=== PATIENT | female | born 1990 | race Caucasian/White ===

== ENCOUNTER 2019-12-18 14:26 | Emergency (ER) | payer OTHER, SELFPAY ==
[2019-12-18 14:32] VITALS: BP 120/81; PULSE 92; RESP 20; TEMP 37.3; O2SAT 97
--- NOTE | 2019-12-18 15:05 | ED.WOUNDLAC ---
HPI - Wound/Laceration General Chief Complaint: Wound/Laceration Stated Complaint: right hand pinky injury Time Seen by Provider: 12/18/19 15:05 Source: patient and RN notes reviewed Mode of arrival: ambulatory Limitations: no limitations History of Present Illness HPI narrative: 29 [facility] complaints of laceration to the anterior mid 5th finger which occurred about 1 hour ago which occurred from a mirror. Patient has flap type of laceration with bleeding noted, has full mobility of her 5th right finger, denies any tingling or numbness to her finger, nail bed has brisk capillary refill, strong right radial pulse. Patient states that her Tetanus is up to date. She is presently on Amoxicillin for a sore throat from her PCP. Onset (ago): hour(s) (1) Location: other (finger right 5th finger) Place: home Patient tetanus UTD: Yes Context: accidental Associated symptoms: none Treatments prior to arrival: bandage Related Data Home Medications Medication Instructions Recorded Confirmed amoxicillin 875 mg PO Q12H 12/18/19 12/18/19 Allergies Allergy/AdvReac Type Severity Reaction Status Date / Time No Known Allergies Allergy Verified 12/18/19 14:35 Review of Systems Review of Systems: Narrative: CONSTITUTIONAL: Denies fever, chills, or sweats. EYES: Denies visual changes, redness, or discharge. ENT: Denies rhinorrhea, congestion, sore throat, or otalgia. CARDIOVASCULAR: Denies chest pain, palpitations, or edema. RESPIRATORY: Denies cough or dyspnea. GASTROINTESTINAL: Denies abdominal pain, nausea, vomiting, or diarrhea. GENITOURINARY: Denies dysuria or hematuria. SKIN: Denies rash or itching.laceeration to her 5th right finger MUSCULOSKELETAL: Denies back pain, joint pain, or myalgia. NEUROLOGIC: Denies headache, numbness, or weakness. PSYCHIATRIC: Denies anxiety or depression. All systems reviewed & are unremarkable except as noted in HPI and below PMFSH Past Medical History Medical History Kidney stones Ureteropelvic junction (UPJ) obstruction Reconstruction 2000 Surgical History Surgical History History of cone biopsy of cervix 2017 Family History Family History Grandparent Family history of malignant neoplasm Diabetes mellitus Father Family history of kidney stones Social History Social History (Updated 12/20/19 @ 10:56 by Caridad Restrepo NP) Smoking status: Never smoker Alcohol intake: current Living arrangements: with family Gender identity (if verbalized by the patient): Female Comments At time of signature, agree with nursing past medical, surgical, social history. There is no relevant family history pertinent to the presenting complaint Exam Narrative: Exam Narrative: GENERAL: Well-appearing, well-nourished, and in no acute distress. HEAD: Normocephalic, atraumatic. EYES: PERRLA and EOMI. ENT: Nares clear, no rhinorrhea or epistaxis. Mucous membranes moist.TM's normal with good light reflex, throat pink with no lesions or exudates, mild tonsil enlargement. NECK: Supple.no lymphadenopathy CHEST: Clear to auscultation. No respiratory distress. HEART: Regular rate and rhythm. No murmur heard. Normal peripheral pulses. ABDOMEN: Soft, nontender, nondistended, normal active bowel sounds. EXTREMITIES: Normal range of motion. No edema. SKIN: Warm, dry, no rash.1cm flap type of laceration to mid anterior right 5th finger, full mobility of her right 5th finger, denies any tingling or numbness to her finger, brisk capillary refill to 5th right nail bed, strong right radial pulse. NEURO: No focal deficits. Alert and oriented x3. Course Vital Signs Vital signs: Vital Signs Temperature 37.3 C 12/18/19 14:32 Pulse Rate 92 12/18/19 14:32 Respiratory Rate 20 12/18/19 14:32 Blood Pressur
== END 2019-12-18 16:02 | disposition home or self-care (01) ==
PROVIDERS: Emergency Provider Registered Nurse; PCP Nurse Practitioner Adult Health
DX: S61.216A Laceration without foreign body of right little finger without damage to nail, initial encounter (principal); W25.XXXA Contact with sharp glass, initial encounter; Y93.9 Activity, unspecified
CPT/HCPCS: 12001; 99212; G0463

== ENCOUNTER → 2021-10-25 15:33 | Outpatient (CLI) | payer OTHER, SELFPAY ==
--- NOTE | ~2021-10-25 | XR_ITS ---
XR abdomen/kub 1V 10/25/2021 15:51 Indication: Renal stones Procedure: KUB Comparison: 07/19/2015 Findings: There are right renal stones. Nonobstructive bowel gas pattern. There are pelvic phlebolith s. There is dextroscoliosis of the lumbar spine. No acute osseous abnormality. Impression: 1: Right nephrolithiasis. Reviewed, dictated and finalized at location A. STRIPPER FINAL Impression: 1: Right nephrolithiasis.
== END ==
PROVIDERS: PCP Nurse Practitioner Adult Health; Visit Provider Urology
DX: N20.0 Calculus of kidney (principal)
CPT/HCPCS: 74018

== ENCOUNTER 2022-08-12 09:20 | Emergency (ER) | payer OTHER, SELFPAY ==
[2022-08-12 09:28] VITALS: BP 126/84; PULSE 97; RESP 16; TEMP 36.5; O2SAT 99
--- NOTE | 2022-08-12 10:54 | ED.URI ---
HPI - URI/Sore Throat General Chief Complaint: Upper Respiratory Infection Stated Complaint: Sore Throat/Congestion Time Seen by Provider: 08/12/22 10:55 Source: patient and RN notes reviewed Mode of arrival: ambulatory Limitations: no limitations History of Present Illness HPI Narrative: 32 y/o female presented for c/o sore throat, sinus pressure/congestion, cough, onset last night. Patient is 14 weeks . She has not taken anything for symptoms. She denies shortness of breath, wheezing, fevers or chills. She endorses vomiting related to . MD elicited complaint: cough Related Data Allergies Allergy/AdvReac Type Severity Reaction Status Date / Time No Known Allergies Allergy Verified 12/18/19 14:35 Review of Systems Review of Systems: ROS per HPI [facility] Past Medical History Medical History (Updated 08/12/22 @ 11:30 by Madeline Koenig APRN) Kidney stones Ureteropelvic junction (UPJ) obstruction Reconstruction 2000 Surgical History Surgical History History of cone biopsy of cervix 2017 Family History Family History Grandparent Family history of malignant neoplasm Diabetes mellitus Father Family history of kidney stones Social History Social History Smoking status: Never smoker Alcohol intake: current Gender identity (if verbalized by the patient): Female Exam Narrative: GENERAL: Ill-appearing, nontoxic EYES: PERRLA, conjunctivae clear ENT: Mucous membranes moist. TM pearly damon with dull light reflex bilaterally; no tragal tenderness. Oropharynx erythematous without tonsillar swelling,lesions or exudate, no drooling, no hoarseness, no trismus, uvula midline. No tripod positioning, muffled voice, soft palate or pharyngeal wall bulging NECK: Supple. No lymphadenopathy CHEST: Clear to auscultation, breath sounds equal. HEART: Regular rate and rhythm. No murmur heard. SKIN: Warm, dry, no rash. NEURO: Alert and oriented x3. PSYCH: Normal mood and affect Course Course Emergency Course: Patient is aware of diagnosis, understands and agrees to treatment plan. Anticipatory guidance given. Patient agrees to follow-up as directed and is aware of reasons to seek care at the emergency department. Portions of this record may have been created with voice recognition software Level of Care: Express Care Visit Vital Signs Vital signs: Vital Signs Temperature 97.7 F 08/12/22 09:28 Pulse Rate 97 08/12/22 09:28 Respiratory Rate 16 08/12/22 09:28 Blood Pressure 126/84 08/12/22 09:28 Pulse Oximetry 99 08/12/22 09:28 Oxygen Delivery Room Air 08/12/22 09:28 Temperature 97.7 F 08/12/22 09:28 Pulse Rate 97 08/12/22 09:28 Respiratory Rate 16 08/12/22 09:28 Blood Pressure 126/84 08/12/22 09:28 Pulse Oximetry 99 08/12/22 09:28 Oxygen Delivery Room Air 08/12/22 09:28 reviewed MDM - URI/Sore Throat MDM Narrative Medical decision making narrative: COVID and flu negative. Results reviewed with patient. Advised supportive measures and signs/symptoms to go to the ER. Pt is appropriate for outpt treatment and f/u. Differential Diagnosis Differential diagnosis: Likely upper respiratory infection, sinusitis and viral infection Lab Data Labs: Influenza A Screen Negative Reference Range: Negative Influenza B Screen Negative Reference Range: Negative Discharge Plan Discharge Clinical Impression: Upper respiratory infection Patient Disposition: Home, Self-Care Condition: Stable Instructions: Upper Respiratory Infection (ED) Additional Instructions: COVID And flu negative. Tylenol every 8 hours as needed for pain Rest, pus
== END 2022-08-12 11:35 | disposition home or self-care (01) ==
PROVIDERS: Emergency Provider Nurse Practitioner Family
DX: O99.512 Diseases of the respiratory system complicating pregnancy, second trimester (principal); Z3A.14 14 weeks gestation of pregnancy; J06.9 Acute upper respiratory infection, unspecified; Z20.822 Contact with and (suspected) exposure to COVID-19
CPT/HCPCS: 87426; 87804; 99213; C9803; G0463

== ENCOUNTER 2022-10-24 14:21 | Outpatient (CLI) | payer OTHER, SELFPAY ==
[2022-10-24] VITALS (8 sets, daily range): BP systolic 120–130; BP diastolic 77–89; PULSE 79–99; TEMP 36.9
--- NOTE | 2022-10-24 15:55 | PC.NURSE ---
Dr. Koch returned page and informed of pt's arrival with c/o small leakage of fluid on and off for the last week. ROM plus was negative. FHT's 145 with 10 beat accels- appropriate for 25 wks gestation. Discussed pt's BP's here today. Pt denies headaches, but does have some spots in vision at time. No epigastric pain. No edema. Unable to illicit DTR's. OK to discharge to home.
== END 2022-10-24 16:08 | disposition home or self-care (01) ==
LOC: ANHOBOP 14:27 → ANHOBPP 14:29
PROVIDERS: Visit Provider Obstetrics & Gynecology
DX: O42.90 Premature rupture of membranes, unspecified as to length of time between rupture and onset of labor, unspecified weeks of gestation (principal); Z3A.00 Weeks of gestation of pregnancy not specified
CPT/HCPCS: 59025; 84112; 99199

== ENCOUNTER 2022-12-21 07:01 | Outpatient (CLI) | payer OTHER, SELFPAY ==
--- NOTE | 2022-12-21 07:15 | PC.NURSE ---
Pt arrived here via personal car. States she was triaged by the [facility] and they told her to come to [place]. Her BP was elevated at that hospital 150s/120s. She went to the ED for chest tightness and dizzy spells. Her Mother is a nurse and stated she had an irregular HR. Upon admission this RN also auscultated an irregular HR. Pt states she has had elevated blood pressure with her visits since September but they were better once they started doing them at the end of her visit vs. right when she got there. She states she has been checking them at home and they have been normal. Pt states she had a colposcopy back in 2018 and her heart stopped after being given lidocaine with epinephrine in it. She is also having contractions that she describes as period cramps.
[2022-12-21 07:26] VITALS: BP 138/109; PULSE 179
[2022-12-21 07:30] VITALS: BP 145/131; PULSE 170
[2022-12-21 07:31] VITALS: PULSE 151; O2SAT 98
[2022-12-21 07:36] VITALS: PULSE 82; O2SAT 100
[2022-12-21 07:41] VITALS: PULSE 45; O2SAT 87
[2022-12-21 07:43] VITALS: PULSE 25; O2SAT 91
--- NOTE | 2022-12-21 07:45 | PC.NURSE ---
Reported to ED charge nurse Rohini holley's complaints. SVE has been performed here and Dr. Noe Rosales would like her evaluated for her cardiac issues prior to giving medications for contractions since her cervix is closed.
[2022-12-21 08:32] LABS: Fetal Fibronectin Negative
[2022-12-21 23:05] LABS: Uric Acid 4.1 mg/dL (2.5-7.5)
[2022-12-21 23:13] LABS: Creatinine Urine 68.1 mg/dL; Total Protein Urine Random 17 mg/dL; Ur Ttl Prot Creatinine Ratio 0.25 mg/mg (0-0.20)
== END 2022-12-21 07:50 | disposition other institution (70) ==
LOC: ANHOBOP 07:05 → ANHOBPP 07:05
PROVIDERS: Obstetrics & Gynecology; Visit Provider Obstetrics & Gynecology
DX: O13.9 Gestational [pregnancy-induced] hypertension without significant proteinuria, unspecified trimester (principal); Z3A.00 Weeks of gestation of pregnancy not specified
CPT/HCPCS: 36415; 59025; 82570; 82731; 84156; 84550; 99199

== ENCOUNTER 2022-12-21 07:51 | Emergency (ER) | payer OTHER, SELFPAY ==
[2022-12-21] VITALS (12 sets, daily range): BP systolic 102–146; BP diastolic 67–130; PULSE 110–175; RESP 15–21; TEMP 36.4; O2SAT 97–100
--- NOTE | ~2022-12-21 | CT_ITS ---
EXAMINATION: CTA chest PE protocol DATE: 12/21/2022 11:48 INDICATION: Shortness of breath TECHNIQUE: Computed tomography angiography (CTA) of the chest was performed with 100 mL Omnipaque-350 intravenous contrast timed to evaluate the pulmonary arteries. Coronal maximum intensity projection 3D-reconstructions were created by the technologist. The dose-length product (DLP) was 398.66 mGy-cm. Automated exposure control and iterative reconstruction technique were employed. COMPARISON: None. FINDINGS: The pulmonary arteries are well-opacified. No pulmonary embolism is identified. No patholog ically enlarged thoracic lymph nodes are identified. The heart size is normal. There is mild dependen t atelectasis. The lungs are free of focal airspace opacities. No pleural effusion or pneumothorax. T here is a small sliding hiatal hernia. There is hydronephrosis of the partially imaged right kidney. There are multiple stones of the right kidney which measure up to 9 mm. IMPRESSION: 1. No pulmonary embolism or acute cardiopulmonary abnormality. 2. Hydronephrosis and nephrolithiasis of the partially imaged right kidney. Reviewed, dictated and finalized at location A.
--- NOTE | ~2022-12-21 | XR_ITS ---
EXAMINATION: XR chest 1V INDICATION: Shortness of breath TECHNIQUE: PA view of the chest is obtained. COMPARISON: 02/24/2018 FINDINGS: The lungs are free of acute opacities. No pleural effusion or pneumothorax. The cardiomedia stinal silhouette is normal. The visualized bones and soft tissues are unremarkable. IMPRESSION: 1. No acute cardiopulmonary abnormality. Reviewed, dictated and finalized at location A.
--- NOTE | 2022-12-21 08:06 | ECG_ITS ---
Measurements Intervals [place] Rate: 113 P: MT: 0 QRS: 22 QRSD: 80 T: 13 QT: 289 QTc: 397 Interpretive Statements ATRIAL FIBRILLATION WITH RAPID VENTRICULAR RESPONSE ABNORMAL RHYTHM ECG NO PREVIOUS ECG AVAILABLE FOR COMPARISON Electronically Signed On 12-21-2022 19:16:41 CDT by Mary Grace Hall M.D.
[2022-12-21 08:35] LABS: Basophils Percent Auto 0.2 % (0.2-1.2); Eosinophils Percent Auto 0.3 % (0-4.4); Hematocrit 35.2 % (37.0-47.0); Hemoglobin 12.2 g/dL (12.0-15.0); Immature Granulocyte Absolute 0.04 K/mm3 (0.00-0.031); Immature Granulocyte Percent A 0.4 % (0-0.5); Lymphocytes Absolute Auto 1.57 K/mm3 (0.9-3.2); Lymphocytes Percent Auto 15.8 % (18.3-44.2); Mean Corpuscular HGB Conc 34.7 g/dl (32-36); Mean Corpuscular Hemoglobin 33.2 pg (26-34); Mean Corpuscular Volume 95.7 fl (80-100); Mean Platelet Volume 10.9 fl (7.4-10.4); Monocytes Absolute Auto 0.6 K/mm3 (0.1-0.6); Monocytes Percent Auto 5.5 % (2.6-8.5); Neutrophils Absolute Auto 7.7 K/mm3 (1.3-6.7); Neutrophils Percent Auto 77.8 % (45.5-73.1); Platelet Count Result 180 k/mm3 (150-375); Red Blood Count 3.68 M/mm3 (4.2-5.4); Red Cell Distribution Width 13.2 % (11.5-14.5); White Blood Count 9.9 K/mm3 (4.5-10.0)
[2022-12-21 08:41] LABS: Appearance Urine Clear (Clear); Bacteria Urine None Seen /hpf; Bilirubin Urine Negative (Negative); Blood Urine Negative (Negative); Color Urine Yellow (Yellow); Glucose Urine UA Negative (Negative); Ketones Urine Trace mg/dL (Negative); Leukocyte Esterase Ur Trace LEU/UL (Negative); Nitrate Urine Negative (Negative); Non Pathogenic Casts 0-2; Protein Urine Negative (Negative); RBC Urine 0-2 /hpf (0-2); Squamous Epithelial Cell Urine None seen /hpf (Few); Urobilinogen Urine 0.2 mg/dL (<2.0)
[2022-12-21 08:44] LABS: Add Urine Microscopic? YES
[2022-12-21 08:45] LABS: INR 0.9
[2022-12-21 08:46] LABS: Partial Thromboplastin Time 26.2 SECONDS (22.3-36.8)
[2022-12-21 08:46] LABS: Alanine Aminotransferase 16 U/L (6-35); Albumin Level 3.6 g/dL (3.5-5.1); Alkaline Phosphatase 132 U/L (38-126); Anion Gap 5 mmol/L (8-16); Aspartate Amino Transferase 20 U/L (14-36); Bilirubin,Total 0.5 mg/dL (0.2-1.3); Blood Urea Nitrogen 4 mg/dL (7-17); Calcium 8.2 mg/dL (8.4-10.2); Carbon Dioxide 23 mmol/L (22-30); Chloride 109 mmol/L (98-107); Estimated CRCL calculation 142 ml/min; Estimated Glomerular Filt Rate > 60; Glucose 85 mg/dL (65-110); Potassium 3.2 mmol/L (3.4-5.0); Sodium 137 mmol/L (137-145)
[2022-12-21] MEDS: METOPROLOL TARTRATE INJ 5 MG/5 ML VIAL IV PUSH ×2 (09:11→13:14)
[2022-12-21 09:18] LABS: NT Pro B Type Natriuretic Pept 217 pg/mL (19.9-100); Troponin I 0.061 ng/mL (0.000-0.034)
--- NOTE | 2022-12-21 09:33 | ED.ARRPALP ---
HPI - Arrhythmia/Palpitations General Chief Complaint: Arrhythmia/Palpitations Stated Complaint: tachycardia, elevated BP, contractions - 33 weeks Time Seen by Provider: 12/21/22 08:11 History of Present Illness HPI narrative: Patient is a 32-year-old female who is a G1, P0 that is 30 weeks and 2 days in gestation who is a patient of Dr. Ma that presents to the ER with shortness of breath and palpitations. Patient reports she had sudden change in dyspnea 1 day ago. Has exertional shortness of breath that occurs just with walking across room. She feels tightness throughout her chest and back that comes and goes in intensity. She felt like she was having contractions of her uterus and that may be she is being kicked by her baby. She has no sharp chest pain. No pain with deep breath. No lower extremity numbness or weakness or edema. No history of PE. No hemoptysis. She has mild orthopnea. Patient found to be in A-fib with RVR. She was over in OB and had a normal NST with a heart rate of 145 bpm for the fetus with 15 beat accelerations with movement. Related Data Home Medications Medication Instructions Recorded Confirmed vit no.95-ferrous 1 tablet PO HS 10/24/22 12/21/22 fumarate 28 mg-folic acid 800 mcg tablet () magnesium 200 mg tablet 210 mg PO DAILY PRN Restless Leg(S) 12/21/22 12/21/22 pantoprazole 40 mg tablet,delayed 40 mg PO DAILY PRN Heartburn 12/21/22 12/21/22 release Allergies Allergy/AdvReac Type Severity Reaction Status Date / Time epinephrine Allergy Unresponsiv Verified 12/21/22 08:15 e lidocaine Allergy Unresponsiv Verified 12/21/22 08:15 e Review of Systems Review of Systems: All systems reviewed & are unremarkable except as noted in HPI and below Constitutional: Constitutional: Denies chills, Reports fatigue and Denies fever(s) ENT: Denies nasal congestion and Denies sore throat Cardiovascular: Cardiovascular: Reports chest pain, Reports rapid heart rate and Denies radiating jaw, neck or arm pain Respiratory: Respiratory: Denies cough, Reports dyspnea and Denies wheezing Gastrointestinal: Gastrointestinal: Reports abdominal pain (Contactions), Denies nausea and Denies vomiting Genitourinary: Genitourinary: Denies nocturia, Denies dysuria and Denies flank pain PMFSH Past Medical History Medical History (Updated 12/21/22 @ 12:37 by Heath Hargrove MD) Kidney stones Ureteropelvic junction (UPJ) obstruction Reconstruction 2000 Surgical History Surgical History History of cone biopsy of cervix 2018 Family History Family History Grandparent Family history of malignant neoplasm Diabetes mellitus Father Family history of kidney stones Social History Social History Smoking status: Never smoker Alcohol intake: current Living arrangements: with family Gender identity (if verbalized by the patient): Female Exam Narrative: GENERAL: Well-appearing, well-nourished, and in no acute distress. HEAD: Normocephalic, atraumatic. EYES: PERRL and EOMI. ENT: Mucous membranes moist. CHEST: Clear to auscultation. No respiratory distress. HEART: Irregular regular rate and rhythm that is tachycardic. Normal peripheral pulses. ABDOMEN: Soft, nontender, palpable uterus above the umbilicus. EXTREMITIES: Normal range of motion. No edema. SKIN: Warm, dry, no rash. NEURO: Alert and oriented x3. PSYCH: Normal mood and affect. Course Course Emergency Course: Patient resting comfortably. She has had modest improvement of her heart rate with IV metoprolol which was recommended by cardiology here Dr. Hall. After consulting Dr. Hall and Dr. Noe Rosales with [employer] it is recommended that patient be transferred to a higher level of care where MFM is available. I discussed
[2022-12-21 09:50] LABS: Magnesium 1.6 mg/dL (1.6-2.3)
[2022-12-21] MEDS: CALCIUM CARBONATE (TUMS) 500 MG (200 MG ELEMENTAL) PO (10:10)
[2022-12-21] MEDS: POTASSIUM CHLORIDE 20 MEQ PACKET (FOR LIQUID) 40 MEQ PO (10:10)
[2022-12-21 11:58] LABS: Troponin I 0.038 ng/mL (0.000-0.034)
[2022-12-21] MEDS: SODIUM CHLORIDE 0.9% IV 500 ML 999 ML IV CONT (13:14)
--- NOTE | 2022-12-21 13:28 | PC.NURSE ---
Report called to Nan WARE at [facility]. eta for [employer].
[2022-12-21] MEDS: SODIUM CHLORIDE 0.9% IV 1,000 ML 150 ML IV CONT (14:51)
[2022-12-21 14:52] LABS: Troponin I 0.027 ng/mL (0.000-0.034)
--- NOTE | 2022-12-21 16:42 | PC.NURSE ---
natty here to transfer pt to [facility].
--- NOTE | 2022-12-21 16:44 | PC.NURSE ---
dr. ramos states that NS can be dc'd for transport
== END 2022-12-21 16:47 | disposition short-term general hospital (02) ==
PROVIDERS: Emergency Provider Emergency Medicine
DX: O99.413 Diseases of the circulatory system complicating pregnancy, third trimester (principal); I48.91 Unspecified atrial fibrillation; Z3A.30 30 weeks gestation of pregnancy
CPT/HCPCS: 36415; 59025; 71045; 71275; 80053; 81001; 82570; 82731; 83735; 83880; 84156; 84443; 84484; 84550; 85025; 85610; 85730; 93005; 96361; 96374; 96376; 99199; 99285; A9270; J7030; J7040; Q9967

== ENCOUNTER 2025-03-20 12:59 | Outpatient (CLI) | payer BC, SELFPAY ==
--- OUTSIDE RECORDS SUMMARY | 2025-03-20 13:08 | XMS_ITS | Clinical Summary ---
Author Organization [facility] [employer] Address [address] [place] [address] Care Team Providers Care Primary Special Educator Name Role Phone Kya Ramirez MILLER-RADIOLOGY CLERK Primary Care Provider + Odilon Koch MD Unavailable [phone] Source Comments [facility],non-owned Affiliates and Associated Physician Practices is amultiple site organization consisting of ambulatory clinics and hospital sitesin [place], [place], [place] and [place]. This disclosure is being madepursuant to the Care Everywhere program and may not contain all information available regarding this patient. Last updated 18.[facility] Allergies Active Allergy Reactions Criticality Noted Date Comments Epinephrine Cardiac Injury High 01/16/2023 Cardiac arrest 2018 Lidocaine Cardiac Injury High 01/16/2023 Cardiac arrest 2018 Medications * This document contains information received from the source organization and may not represent a complete record from that organization. * Be aware that medications may not be up to date on this document. Alwaysverify current medications with the patient. Vit-DSS-Fe Fum-FA ( vitamin with iron) tablet Take 1 (one) tablet by mouth once daily Active vitamin D, cholecalciferol , 50 MCG (1999) tablet Take 3 (three) tablets by mouth once daily Active magnesium oxide (Mag-Ox) 400 MG tablet Take 1 (one) tablet by mouth once daily Active vitamin B2 (Riboflavin) 100 MG tablet Take 1 (one) tablet by mouth once daily Active plus iron (Natatab) 29-1 MG tablet Take 1 (one) tablet by mouth once daily 60 tablet 1 02/19/2024 Active metoprolol succinate XL 24hr (Toprol XL) 50 MG tablet Take 1 (one) tablet by mouth once daily 90 tablet 4 06/20/2024 Active Active Problems Problem Noted Date Diagnosed Date Palpitations 06/20/2024 External thrombosed hemorrhoids 02/19/2024 Short interval between pregn ancies affecting , antepartum 12/30/2023 Anemia affecting in third trimester High-risk in third trimester 4 Rh negative state in antepartum period 4 History of migraine headaches 10/08/2023 History of atrial fibrillation 08/12/2023 Chronic hypertension affecting 023 History of cervical cone bio psy affecting care of mother, antepartum 08/12/2023 History of severe pre-eclampsia: G1 01/26/2023 Afib 12/21/2022 H/O cardiac arrest 12/21/2022 Kidney stones 07/04/2011 Hypercalciuria, idiopathic 07/04/2011 UPJ (ureteropelvic junction) obstruction 011 Overview (07/04/2011): Right- S/P repair Resolved Problems Problem Noted Date Diagnosed Date Resolved Date Routine follow-up 01/26/2023 10/08/2023 Axillary lymphadenopathy 01/26/202301/2023 Engorgement of breasts assoc iated with childbirth, delivered 01/26/2023 03/11/2023 Gestational hypertension, third trimester 01/17/2023 01/26/2023 Trauma during 01/16/202301/06 Gestational hypertension, third trimester 12/24/2022 01/26/2023 Supervision of high risk pre gnancy in third trimester 12/22/2022 01/26/2023 Immunizations Immunization Administration Dates Next Due MMR 02/18/2024(Deferred: - rubella immune),01/20/2023(Deferred: See Comments - imm) Rho D Immune Globulin 02/18/2024(Deferred: Patie nt Refused),01/21/2023 TDAP (7yrs+) 02/17/2024(),01/20/2023(Deferred : Patient Refused) Family History Medical History Relation Name Comments Atrial Fibrillation Father Diabetes; unknown type Father Kidney Stones Father Kidney Stones Paternal Grandfather Relation Name Status Comments Father Alive Mother Alive Paternal Grandfather Social History Tobacco Use Types Packs/Day Years Used Date Smoking Tobacco: Never Tobacco Cessation:Counseling Given: Not Answered Alcohol Use Standard Drinks/Week Comments Not Currently 0 (1 standard drink = 0.6 oz pur e alcohol) AUDIT-C Answer Date Recorded Q1: How often do you have a drink containing alcohol? Never 12/31/2023 Q2: How many drinks containi ng alcohol do you have on a typical day when you are drinking? Patient does not drink Q3: How often do you have si x or more drinks on one occasion? Never 12/31/2023 Overall Financial Resource Strain (CARDIA) Answe r Date Recorded How hard is it for you to pa y for the very basics like food, housing, medical care, and heating? Not hard at all 02/16/2024 PHQ-2 Answer Date Recorded Patient Health Questionnaire-2 Score 0 02/14/2024 [facility] - Occupational Stress Questionnaire Answer Date Recorded Do you feel stress - tense, restless, nervous, or anxious, or unable to sleep at night because your mind is troubled all the time - these days? Not at all 02/16/2024 Hunger Vital Sign Answer Date Recorded Within the past 12 months, y ou worried that your food would run out before you got the money to buy more. Never true 02/16/20 24 Within the past 12 months, t he food you bought just didn't last and you didn't have money to get more. Never true 02/16/2024 PRAPARE - Transportation Answer Date Re corded In the past 12 months, has l ack of transportation kept you from medical appointments or from getting medications? No 02/05 In the past 12 months, has l ack of transportation kept you from meetings, work, or from getting things needed for daily living? No 02/16/2024 Housing Stability Vital Sign Answer Young e Recorded In the last 12 months, was t here a time when you were not able to pay the mortgage or rent on time? No 02/16/2024 In the last 12 months, how many places have you lived? 1 02/16/2024 In the last 12 months, was t here a time when you did not have a steady place to sleep or slept in a jail (including now)? No 02/16/2024 [place] Depression Scale Answer Date Recorded [place] Depression Scale Total 0 03/30/2024 The thought of harming myself has occurred to me . Never 03/30/2024 Education Answer Date Recorded What is the highest level of school you have completed or the highest degree you have received? Bachelor's degree (e.g., BA, AB, BS) 12/30/2022 Comments No Sex and Gender Information Value Date Recorded Sex Assigned at Not on file Legal Sex Female 5:35 AM SURVEYOR GEOPHYSICAL PROSPECTING Gender Identity Not on file Sexual Orientation Not on file Last Filed Vital Signs Vital Sign Reading Time Taken Comments Blood Pressure 120/84 06/20/2024 2:31 PM CDT Pulse 78 03/17/2024 12:14 PM CDT Temperature 36.1 C (97 F) 03/17/2024 12:14 PM CDT Respiratory Rate 18 03/17/2024 12:14 PM CDT Oxygen Saturation 97% 03/17/2024 12:14 PM CDT Inhaled Oxygen Concentration - - Weight 63.5 kg (140 lb) 06/20/2024 2:31 PM CDT Height 152.4 cm (5') 03/30/2024 11:33 AM CDT Body Mass Index 27.34 03/30/2024 11:33 AM CDT Plan of Treatment Health Maintenance Due Date Last Done Comments DTAP/TDAP/TD VACCINES (1 - Tdap) 2010 HEPATITIS B VACCINE (1 of 3 - 19+ 3-dose series) 2010 PAP SMEAR 2012 HPV VACCINE (1 - 3-dose SCDM series) 2018 COVID-19 VACCINE (2023-2 5 season) 2024 DEPRESSION SCREENING 09/07/2024 03/30/2024, 09/10/2023 INFLUENZA VACCINE (#1) 2025 ZOSTER VACCINE (1 of 2) 2041 HEPATITIS C SCREENING Completed 07/23/2023 , 01/13/2023 HIV SCREENING Completed 12/03/2023, 07/23/2023 HIB VACCINE Aged Out No longer eligi ble based on patient's age to complete this topic MENINGOCOCCAL (Group B) VACCINE SHARED DECISION-MAKING Aged Out No longer eligible based on patient's age to complete this topic MENINGOCOCCAL GROUPS A/C/Y/W VACCINE Aged Out No longer eligible b ased on patient's age to complete this topic PNEUMOCOCCAL VACCINE Aged Out No long er eligible based on patient's age to complete this topic Procedures Procedure Name Priority Date/Time Associated Diagnosis Comments HIV-1 HIV-2 ANTIBODY + HIV P24 AG PANEL 12/03/2023 HEPATITIS C ANTIBODY Routine 07/23/2023 10:33 AM SURVEYOR GEOPHYSICAL PROSPECTING Supervision of high-risk of young multigravida from Last 3 Months or Most Recently Relevant to Health Maintenance Results * HIV-1 HIV-2 ANTIBODY + HIV P24 AG PANEL (12/03/2023) HIV Screen 4th Generation w Reflex NON-REACT NIC NON-REACT NIC [facility] Comment: HIV-1 antigen and HIV-1/HIV-2 antibodies were not detected. There is no laboratory evidence of HIV infection. PLEASE NOTE: This information has been disclosed to you from records whose confidentiality may be protected by state law. If your state requires such protection, then the state law prohibits you from making any further disclosure of the information without the specific written consent of the person to whom it pertains, or as otherwise permitted by law. A general authorization for the release of medical or other information is NOT sufficient for this purpose. For additional information please refer to http://[email or web address]/faq/XQD484 (This link is being provided for informational/ educational purposes only.) The performance of this assay has not been clinically validated in patients less than 2 years old. Test Performed at: [facility] [address] [place] [address] KEYON CARRERA MD 12/03/2023 12/03/2023 3:2 8 PM CDT Reena Alyssa JOYARADIOLOGY CLERK LAB - CHEMISTRY ORDERA BLES Final Result [facility] [id number] [place] [address] * HEPATITIS C ANTIBODY (07/23/2023 10:33 AM SURVEYOR GEOPHYSICAL PROSPECTING) Pathologist [facility] HCV Antibody Screen Non Reactive Non Reactive 07/23/2023 11:56 AM SURVEYOR GEOPHYSICAL PROSPECTING [facility] Blood BLOOD SPECIMEN / Unknown Venipuncture / Unknown 07/23/2023 10:33 AM SURVEYOR GEOPHYSICAL PROSPECTING 07/23/2023 11:06 AM SURVEYOR GEOPHYSICAL PROSPECTING Narrative [facility] - 07/23/2023 11:56 AM SURVEYOR GEOPHYSICAL PROSPECTING Non Reactive - Antibodies to Hepatitis C virus (HCV) were not detected, result does not exclude early acute HCV infection. Kavya Serra MD LAB - CHEMISTRY ORDERABLES Lisa l Result Performing Organization Address City/[facility] Co de Phone Number [facility] [address] [place] [address] from Last 3 Months or Most Recently Relevant to Health Maintenance [place] [address] [address] [place] [address] Advance Directives * Full Code (Latest Code Status on File) Date Activated Date Inactivated Comments 02/16/2024 3:49 AM 02/18/2024 5:29 PM * Full Code Date Activated Date Inactivated Comments 12/31/2023 3:34 AM 01/01/2024 4:52 PM * Full Code Date Activated Date Inactivated Comments 01/17/2023 8:25 PM 01/21/2023 4:26 PM * Full Code Date Activated Date Inactivated Comments 01/17/2023 6:50 AM 01/17/2023 8:25 PM * Full Code Date Activated Date Inactivated Comments 12/21/2022 5:59 PM 12/24/2022 5:20 PM Care Teams Primary Special Educator Relationship Specialty Start Date End Date Kya Ramirez APRN-RADIOLOGY CLERK [address] [phone] PCP - General Nurse Practitioner 07/23/23 Odilon Koch MD [address] [phone] Remnant Sorter Obstetrics and Gynecology 01/15/24
--- OUTSIDE RECORDS SUMMARY | 2025-03-20 13:09 | XMS_ITS | Encounter Summary ---
Author Organization [facility] Address [address] [place] [address] Care Team Providers Care Electrotyper Apprentice Name Role Phone Kya Ramirez OUT AND OUT CIGAR MAKER HAND-HCC CODERS Primary Care Provider + Odilon Kohc MD Unavailable Reason for Visit * Reason Onset Date Comments Follow-up 06/21/2024 06/21/[address] Jw markham pt no answer and vcmail full, pt need to follow up in 6 mo blm Encounter Details Date Type Department Care Team (Late st Contact Info) Description 06/21/2024 Telephone [facility] & V[facility] [address] [place] [address] [address] [place] [address] Honorio Escalera MD [address] [place] [address] [address] [place] [address] Follow-up (06/21/[address] Jw markham pt no answer and vcmail full, pt need to follow up in 6 mo blm) Social History Tobacco Use Types Packs/Day Years Used Date Smoking Tobacco: Never Alcohol Use Standard Drinks/Week Comments Not Currently [...] Recorded Patient Health Questionnaire-2 Score 0 02/14/2024 [facility] - Occupational Stress [...] place to sleep or slept in a alf (including now)? 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 Answer Date of Assessment Author No 02/19/2024 7:52 PM Carmel Naidu RN * Is person blind or have serious difficulty seeing? Answer Date of Assessment Author No 02/19/2024 7:52 PM ANGELT Carmel Pitt RN * Does person have serious difficulty walking/climbing stairs? Answer Date of Assessment Author No 02/19/2024 7:52 PM Carmel Naidu RN * Does person have difficulty dressing/bathing? Answer Date of Assessment Author No 02/19/2024 7:52 PM Carmel Naidu RN * Does person have difficulty doing errands alone? Answer Date of Assessment Author No 02/19/2024 7:52 PM Carmel Naidu RN documented as of this encounter Mental Status * Does person have difficulty concentrating/remembering/making decisions? Answer Entry Date Author No 02/19/2024 7:52 PM Carmel Naidu RN documented in this encounter Plan of Treatment Not on file documented as of this encounter Visit Diagnoses Not on filedocumented in this encounter Care Teams Electrotyper Apprentice Relationship Specialty Start Date End Date Kya Ramirez APRN-RACHAEL [address] [place] [address] PCP - General Nurse Practitioner 07/23/23 Odilon Koch MD [address] [phone] Technical Operator Obstetrics and Gynecology 01/15/24 documented as of this encounter
--- OUTSIDE RECORDS SUMMARY | 2025-03-20 13:09 | XMS_ITS | Referral Summary ---
Author Organization [facility] Address [address] [place] [address] Phone Care Team Providers Care Report Programmer Name Role Phone Miscellaneous, Not In File Primary Care Provider Unavailable Kya Ramirez CUSTOMER SERVICE CORRESPONDENCE CLERK Unavailable [phone] Allergies Active Allergy Reactions Criticality Noted Date Comments Epinephrine Other (See comments) Low 03/28/2019 heart stopped Lidocaine Other (See comments) Low 03/28/2019 heart stopped Medications 09/26, , 1-20 mg-mcg per tablet TK 1 T PO D . 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 Patient is healthy otherwise. Most likely the anesthetic medication was introduced by accident into the blood stream to cause this kind of ventricular tachycardia. If this patient to undergo a repeat procedure then we will advice that to be done in hospital sitting. Will advise to check electrolytes and magnesium before the surgery. Lipid screening 03/15/2018 Social History Tobacco Use Types Packs/Day Years Used Date Smoking Tobacco: Never Smokeless Tobacco: Never Alcohol Use Standard Drinks/Week Comments No 0 (1 standard drink = 0.6 oz pur e alcohol) Personal Safety Answer Date Recorded Getting School Help Needed Not on file 05/13 Comments Unknown Sex and Gender Information Value Date Recorded Sex Assigned at Not on file Legal Sex Female 12:09 PM WAGON WASHER Gender Identity Not on file Sexual Orientation Not on file Last Filed Vital Signs Vital Sign Reading Time Taken Comments Blood Pressure 116/78 11/09/2021 2:00 PM WAGON WASHER Pulse 85 11/09/2021 2:00 PM WAGON WASHER Temperature 37.3 C (99.1 F) 11/09/2021 2:00 PM WAGON WASHER Respiratory Rate 15 11/09/2021 2:00 PM WAGON WASHER Oxygen Saturation 98% 11/09/2021 2:00 PM WAGON WASHER Inhaled Oxygen Concentration - - Weight 60.8 kg (134 lb) 11/09/2021 2:00 PM WAGON WASHER Height 152.4 cm (5') 11/09/2021 2:00 PM WAGON WASHER Body Mass Index 26.17 11/09/2021 2:00 PM WAGON WASHER Plan of Treatment Not on file Procedures Procedure Name Priority Date/Time Associated Diagnosis Comments SURGICAL PATHOLOGY Routine 02/14/2025 2: 00 PM CDT from Last 3 Months Results * Surgical pathology (02/14/2025 2:00 PM CDT) Skin, shave biopsy 02/14/2025 2:00 PM CDT 02/15/2025 8:45 AM CDT Narrative 02/22/2025 11:16 AM CDT [facility] results best viewed via link to PDF [facility] [address] [place] [address], [address], [place] [address] [email or web address] Note to Patients: This report may contain a detailed description of human tissue sent by a health care provider to the laboratory for pathologic evaluation. The content of this report is essential for diagnosis and may provide important critical findings. This information may be unfamiliar to patients to review without a medical professional present. It is advised that the patient review this report in the presence of a health care provider who can answer questions and explain the details. FINAL REPORT Patient Information: PATIENT NAME: FEROZ DONOHUE SEX: F : 1990 (Age: 34) Specimen Information: COLLECTED: 02/14/2025 RECEIVED: 02/15/2025 REPORTED: 02/22/2025 Submitting Physician Information: Amber Marie, [facility], [address] [place] [address], DERMATOPATHOLOGY REPORT RESULTS DIAGNOSIS: SKIN, LEFT INFERIOR YOVANI LIP, SHAVE BIOPSY: HYPERPLASTIC ACTINIC KERATOSIS Note: A Gram stain highlights numerous Gram-positive cocci within the overlying parakeratotic scale. The clinical significance of this finding is uncertain. The lesion does not extend to the margins of the sections examined. fauzia/ajrr By this signature, I attest that the above diagnosis is based upon my personal examination of the slides(and/or other material indicated in the diagnosis). Reji Hargrove M.D. Report Electronically Reviewed and Signed Out By Reji Hargrove M.D. 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 Numerous microorganisms are visible within the overlying scale-crust on routine sections. Given the histologic findings, special stains (Gram and PAS) were performed to evaluate for the presence of microorganisms. Gram stain highlights numerous Gram-positive cocci within the overlying parakeratotic scale. PAS is negative for hyphae. (L57.0) GROSS DESCRIPTION: Received in a formalin-containing bottle is a superficial fragment of pale navas, finely scaling, and semi-translucent skin measuring 0.7 by 0.4 by 0.1 cm. The surgical margin is inked blue. The specimen bears a centrally located, slightly raised, pink-navas, scaly area measuring 0.3 by 0.2 cm. The specimen is sectioned into 2 pieces and submitted entirely in a single cassette. Due to shrinkage, measurements may be different than those at the time of procedure. fauzia/mxf ICD-9 A; ZSD.27 Clerical Data A; 73046, 08187, [address]204 The characteristics of special, immunohistochemical, and immunofluorescence stains and in-situ hybridization tests performed by the [facility] were deemed acceptable in ongoing quality systems manager measures and in compliance with regulations drawn from the Clinical Laboratory Improvement Act nv3752 (CLIA '88). Control reactions for all stains performed were deemed adequate and appropriate by a pathologist prior to evaluation of patient tissue. Some diagnoses were rendered with the assistance of laboratory-developed tests utilizing analyte-specific reagents; the performance characteristic of these tests were determined by [facility] and are not cleared or approved by the [place] Food an Drug administration. Laboratory developed test may only be performed in a facility that is certified by the [facility] as a high-complexity laboratory under CLIA '88. These tests are used for clinical purposes and are not investigational. us Notinfile Unknown LAB PATHOLOGY ORDERABLES Final Result from Last 3 Months Insurance [facility] CHOICE [place] Care Teams Report Programmer Relationship Specialty Start Date End Date Miscellaneous, Not In File PCP - General 05/13/24 Kya Ramirez NP Nurse Practitioner 05/13/24
--- OUTSIDE RECORDS SUMMARY | 2025-03-20 13:09 | XMS_ITS | Encounter Summary ---
Author Organization [facility] Address [address] [place] [address] Care Team Providers Care Digital Marketing Consultant Name Role Phone Lupillo Persaud MD Primary Care Provider [phone] Lupillo Persaud MD Primary Care Provider [phone] Kya Ramirez NP Primary Care Provider [phone] Miscellaneous, Not In File Primary Care Provider Unavailable Kya Ramirez NP Unavailable [phone] Encounter Details Date Type Department Care Team (Late st Contact Info) Description 02/05/2018 Orders Only [facility] Health Information Management [address] [place] [id number] Scanning, Provider Social History Tobacco Use Types Packs/Day Years Used Date Smoking Tobacco: Never Assessed Comments Unknown Sex and Gender Information Value Date Recorded Sex Assigned at Not on file Legal Sex Female 12:09 PM 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 Gender Identity Not on file Sexual Orientation Not on file documented as of this encounter Plan of Treatment Not on file documented as of this encounter Procedures Procedure Name Priority Date/Time Associated Diagnosis Comments CARDIOLOGY DOCUMENT SCAN 02/05/2018 documented in this encounter Results * Cardiology Document Scan (02/05/2018) Anatomical Region Laterality Modality Other Provider Scanning CV CARDIAC SERVICES PROCEDURES Final Result documented in this encounter Visit Diagnoses Not on filedocumented in this encounter Care Teams Digital Marketing Consultant Relationship Specialty Start Date End Date Lupillo Persaud MD [address] [place] [address] PCP - General Internal Medicine 09/07/17 02/07/18 Lupillo Persaud MD [address] [place] [address] PCP - General Internal Medicine 02/08/18 03/27/19 Kya Ramirez NP [address] [facility] [address] [place] [address] PCP - General Nurse Practitioner 03/28/19 05/12/24 Miscellaneous, Not In File PCP - General 05/13/24 Kya Ramirez NP [address] [facility] [address] [place] [address] Nurse Practitioner 05/13/24 documented as of this encounter
--- OUTSIDE RECORDS SUMMARY | 2025-03-20 13:09 | XMS_ITS | Clinical Summary ---
Author Organization [facility] Address [address] [place] [address] Phone Care Team Providers Care Spot Wel[employer] Name Role Phone Miscellaneous, Not In File Primary Care Provider Unavailable Kya Ramirez DECORATOR INSPECTOR Unavailable [phone] Allergies Active Allergy Reactions Criticality Noted [...] CDT): This is a drug reaction during straightening machine feeder procedure. Patient is healthy otherwise. Most likely the anesthetic medication was introduced by accident into the blood stream to cause this kind of ventricular tachycardia. If this patient to undergo a repeat procedure then we will advice that to be done in hospital sitting. Will advise to check electrolytes and magnesium before the surgery. Lipid screening 03/15/2018 Surgical History Surgery Date Site/Laterality Comments CERVICAL BIOPSY Medical History Medical History Date Comments Cardiac rhythm disturbance Bladder infection Kidney stones Family History Medical History Relation Name Comments Hypertension Father Diabetes Mother Hypertension Mother Relation Name Status Comments Father Alive Mother Alive Social History Tobacco Use Types Packs/Day Years [...] on file Legal Sex Female 12:09 PM TUBE TELLER Gender Identity Not on file Sexual Orientation Not on file Obstetrics History Last Filed Vital Signs Vital Sign Reading Time Taken Comments Blood Pressure 116/78 11/09/2021 2:00 PM TUBE TELLER Pulse 85 11/09/2021 2:00 PM TUBE TELLER Temperature 37.3 C (99.1 F) 11/09/2021 2:00 PM TUBE TELLER Respiratory Rate 15 11/09/2021 2:00 PM TUBE TELLER Oxygen Saturation 98% 11/09/2021 2:00 PM TUBE TELLER Inhaled Oxygen Concentration - - Weight 60.8 kg (134 lb) 11/09/2021 2:00 PM TUBE TELLER Height 152.4 cm (5') 11/09/2021 2:00 PM TUBE TELLER Body Mass Index 26.17 11/09/2021 2:00 PM TUBE TELLER Plan of Treatment Health Maintenance Due Date Last Done Comments Cervical Cancer Screening 1991 Depression Screening 1991 Hepatitis C Screening 1991 Varicella Vaccines (1 of 2 - 13+ 2-dose series) 2004 Regular Well Visit/Exam 18-64 2009 DTaP/Tdap/Td Vaccine (8 - Td or Tdap) 03/03/2016 03/03/2006, 03/26/2002, 09/15/1996, Additional history exists Influenza Vaccine (Season Ended) 2025 Hepatitis B Screening Completed 04/06/1997 , 10/13/1996, 09/15/1996 HPV Vaccines Completed 02/09/2008, 05/09, 03/02/2007 Pneumococcal vaccine <65 Aged Out No longer eligible based on patient's age to complete this topic Procedures Procedure Name Priority Date/Time Associated Diagnosis Comments SURGICAL PATHOLOGY Routine 02/14/2025 2: 00 PM CDT from Last 3 Months Results * Surgical pathology (02/14/2025 2:00 PM CDT) Skin, shave biopsy 02/14/2025 2:00 PM CDT 02/15/2025 8:45 AM CDT Narrative 02/22/2025 11:16 AM CDT EPIC results best viewed via link to PDF [facility] [address] [place] [address], [address], [place] [address] [email or web address] Note to Patients: This report may contain [...] 02/15/2025 REPORTED: 02/22/2025 Submitting Physician Information: Amber Marie [facility], [address] [place] [address], DERMATOPATHOLOGY REPORT RESULTS DIAGNOSIS: SKIN, LEFT INFERIOR [...] fauzia/mxf ICD-9 A; ZSD.27 Clerical Data A; 09476, 35843, 19073 The characteristics of special, immunohistochemical, and immunofluorescence stains and in-situ hybridization tests performed by the [facility] were deemed acceptable in ongoing quality assurance supervisor measures and in compliance with regulations drawn from the Clinical Laboratory Improvement Act oo0968 (CLIA '88). Control reactions for all stains performed were deemed adequate and appropriate by a pathologist prior to evaluation of patient tissue. Some diagnoses were rendered with the assistance of laboratory-developed tests utilizing analyte-specific reagents; the performance characteristic of these tests were determined by [facility] and are not cleared or approved by the [place] Food an Drug administration. Laboratory developed test may only be performed in a facility that is certified by the [facility] as a high-complexity laboratory under CLIA '88. These tests are used for clinical purposes and are not investigational. us Notinfile Unknown LAB PATHOLOGY ORDERABLES Final Result from Last 3 Months Insurance [facility] [employer] [place] Care Teams Spot Welder Body Assembly Relationship Specialty Start Date End Date Miscellaneous, Not In File PCP - General 05/13/24 Kya Ramirez NP Nurse Practitioner 05/13/24
[2025-03-20 18:26] LABS: Add Urine Microscopic? YES; Appearance Urine Clear (Clear); Glucose Urine UA Negative (Negative); Leukocyte Esterase Ur Trace LEU/UL (Negative); Nitrate Urine Negative (Negative); Non Pathogenic Casts 0-2; Specific Grav Ur 1.013 (1.001-1.035)
== END 2025-03-20 13:00 | disposition home or self-care (01) ==
LOC: ANHBWCLAB 13:00
PROVIDERS: PCP Nurse Practitioner Adult Health; Visit Provider Nurse Practitioner Adult Health
DX: R39.9 Unspecified symptoms and signs involving the genitourinary system (principal)
CPT/HCPCS: 81001

== ENCOUNTER 2025-06-16 13:11 | Outpatient (CLI) | payer BC, SELFPAY ==
--- NOTE | ~2025-06-16 | CT_ITS ---
EXAMINATION: CT abdomen pelvis wo/w con DATE: 06/16/2025 14:17 INDICATION: Gross hematuria. TECHNIQUE: Computed tomography (CT) of the abdomen and pelvis was performed without and with intravenous contrast using a total of 130 mL Omnipaque-350 intravenous contrast with a double-bolus technique for simultaneous opacification of the renal parenchyma and renal collecting system. Automated exposure control and iterative reconstruction technique were employed. The dose- length product was 1545.63 mGy-cm. COMPARISON: CT abdomen and pelvis 11/08/2012 FINDINGS: The visualized portions of the lung bases demonstrate mild atelectasis. No pleural effusion. The heart size is normal. No pericardial effusion. The liver, gallbladder, spleen, pancreas, and adrenal glands are normal. There is a 4.3 cm cyst in right kidney. There are greater than 10 stones in right kidney measuring up to 8 mm. There is mild right hydronephrosis. There is a 1 mm stone in left kidney. Right ureter is well opacified and is normal. Left ureter is not well opacified distally, but is normal. The bladder is normal. There are no dilated loops of bowel. There are no pathologically enlarged lymph nodes. There is no free intraperitoneal fluid. There is mild thoracic and lumbar spondylosis. IMPRESSION: 1. Bilateral nonobstructing kidney stones. 2. Chronic mild right hydronephrosis. Reviewed, dictated and finalized at location E.
[2025-06-16 13:50] LABS: Estimated Glomerular Filt Rate > 60
== END 2025-06-16 13:12 | disposition home or self-care (01) ==
LOC: MICIMG 13:12
PROVIDERS: PCP Nurse Practitioner Adult Health; Visit Provider Physician Assistant
DX: R31.0 Gross hematuria (principal); N20.0 Calculus of kidney
CPT/HCPCS: 74178; Q9967